=== PATIENT | male | born 1985 ===

== ENCOUNTER 2019-12-30 08:21 | Emergency (ER) | payer SELFPAY ==
[2019-12-30] MEDS ORDERED: KETOROLAC 10 MG TAB PO ONE (10:21)
[2019-12-30] MEDS ORDERED: amLODIPine 5 MG TAB PO ONE (10:21)
[2019-12-30] MEDS ORDERED: CYCLOBENZAPRINE 10 MG TAB PO ONE (10:22)
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
[2019-12-30 11:29] VITALS: BP 224/136
== END 2019-12-30 11:45 | disposition home or self-care (01) ==
LOC: ED 08:21
DX: S39.012A Strain of muscle, fascia and tendon of lower back, initial encounter (principal); M62.830 Muscle spasm of back; I10 Essential (primary) hypertension; Z79.899 Other long term (current) drug therapy; V49.49XA Driver injured in collision with other motor vehicles in traffic accident, initial encounter; Y92.410 Unspecified street and highway as the place of occurrence of the external cause; Y93.89 Activity, other specified; Y99.8 Other external cause status
CPT/HCPCS: 72100